=== PATIENT | male | born 1955 | race Caucasian/White ===

== ENCOUNTER 2019-03-13 20:50 | Emergency (ER) | payer OTHER ==
[2019-03-13 21:24] VITALS: BP 139/86; PULSE 60; TEMP 98.2; BMI 27.1
[2019-03-13] MEDS ORDERED: AMOX TR/POT CLAV 500MG/125MG TABLETS (FP) PO ONE (22:20)
[2019-03-13] MEDS ORDERED: HEPARIN NA (PORCINE) 5,000 UNITS/ML 1ML VIAL IVPUSH ONE (22:25)
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
[2019-03-13] MEDS ORDERED: AMOX TR/POT CLAV 500MG/125MG TABLETS (FP) ONE (22:54)
== END 2019-03-13 22:59 | disposition home or self-care (01) ==
LOC: FER 20:50
DX: S01.81XA Laceration without foreign body of other part of head, initial encounter (principal); V00.141A Fall from scooter (nonmotorized), initial encounter; Y93.89 Activity, other specified; Y92.410 Unspecified street and highway as the place of occurrence of the external cause
CPT/HCPCS: 70450-TC; 70486-TC; 99281-25